=== PATIENT | female | born 1965 | race Caucasian/White ===

== ENCOUNTER 2018-08-22 04:27 | Emergency (ER) | payer OTHER ==
[2018-08-22] MEDS ORDERED: IOPAMIDOL (ISOVUE-300) 100 ML BTL ONE (05:09)
[2018-08-22 05:33] LABS: PLATELET COUNT 209 10^3/uL (150-400)
[2018-08-22] MEDS ORDERED: KETOROLAC 15 MG/1 ML SDV IVP ONE (06:50)
--- NOTE | 2018-08-22 07:19 | EDPHY ---
H & P Stated Complaint: Severe abd pain, HR of 26 at home, given 0.5 atropine x 2 enroute Time Seen by Provider: 08/22/18 04:45 HPI/ROS: Chief Complaint: Abdominal pain HPI: 52-year-old woman woke with generalized abdominal pain this morning. It was a 10/10. She called EMS. On EMS arrival they documented a heart rate of in the 20s. Patient states that the pain started to subside. Shortly at the pain started improving her heart rate started coming up. Paramedics did administer 0.5 mg of adenosine IV with resultant heart rate in the 80s. Patient is not complaining of generalized abdominal pain. Denies any lightheadedness or fainting. No chest pain or shortness of breath. She did eat some fish salad yesterday for dinner which she feels may have been bad. No diarrhea or constipation. Does not have a history of similar episodes in the past. Pain is improved, now about a 5/10. She does not have a history of low heart rate syncope or family history of sudden cardiac . ROS: 10 systems were reviewed and were negative except those elements noted in the HPI. PMH: Denies Social History: No smoking, no alcohol, no recreational drug use Family History: non-contributory Physical Exam: Gen: Awake, Alert, No Distress HEENT: Nose: no rhinorrhea Eyes: PERRLA, EOMI Mouth: Moist mucosa Neck: Supple, no JVD Chest: nontender, lungs clear to auscultation Heart: S1, S2 normal, no murmur Abd: Soft, mild generalized tenderness, primarily in the left side, no guarding Back: no CVA tenderness, no midline tenderness Ext: no edema, non-tender Skin: no rash Neuro: CN II-XII intact, Sensation grossly intact, Strength 5/5 in bilateral upper and lower extremities - Personal History Current Tetanus/Diphtheria Vaccine: Yes Current Tetanus Diphtheria and Acellular Pertussis (TDAP): Yes - Medical/Surgical History Hx Asthma: No Hx Chronic Respiratory Disease: No Hx Diabetes: No Hx Cardiac Disease: No Hx Renal Disease: No Hx Cirrhosis: No Hx Alcoholism: No Hx HIV/AIDS: No Hx Splenectomy or Spleen Trauma: No Other PMH: denies - Social History Smoking Status: Never smoked Constitutional: Initial Vital Signs Temperature (C) 36.4 C 08/22/18 04:33 Heart Rate 83 08/22/18 04:33 Respiratory Rate 18 08/22/18 04:33 Blood Pressure 126/96 H 08/22/18 04:33 O2 Sat (%) 100 08/22/18 04:33 O2 Delivery Mode Room Air Allergies/Adverse Reactions: No Known Allergies Allergy (Unverified 08/22/18 04:33) Home Medications: Medication Instructions Recorded NK [No Known Home Meds] 08/22/18 Medical Decision Making - Diagnostics EKG Interpretation: ECG time 4:42 a.m., sinus rhythm with a rate of 80, normal axis, normal intervals, no acute ST or T-wave changes. Impression: Normal ECG. Imaging Results: CT scan of the abdomen pelvis is negative per Dr. James. No source of her pain identified. ED Course/Re-evaluation: 52-year-old woman presenting with generalized abdominal pain. Is resolved with Toradol IV in fluids. Laboratory evaluations are completely normal. CT scan of abdomen pelvis is normal. I am not finding a cause of her pain. Paramedics did report an episode of bradycardia. This is not captured on a rhythm strip. He she has had no. Is of bradycardia in the emergency department. Symptoms may have been secondary to a vasovagal episode. She has been up and ambulating unassisted. Plan will be for discharge with follow-up with primary care physician. - Data Points Laboratory Results: Laboratory Results 08/22/18 05:16 08/22/18 05:16 08/22/18 08/22/18 08/22/18 06:20 05:16 05:16 WBC 8.43 10^3/uL 10^3/uL (3.80-9.50) RBC 4.23 10^6/uL 10^6/uL (4.18-5.33) Hgb 14.0 g/dL g/dL (12.6-16.3) Hct 41.2 % % (38.0-47.0) MCV 97.4 fL fL (81.5-99.8) MCH 33.1 pg pg (27.9-34.1) MCHC 34.0 g/dL g/dL (32.4-36.7) RDW 11.4 % L % (11.5-15.2) Plt Count 209 10^3/uL 10^3/uL (150-400) MPV 11.9 fL H fL (8.7-11.7) Neut % (Auto) 74.3 % H % (39.3-74.2) Lymph % (Auto) 17.1 % % (15.0-45.0) [place] % (Auto) 5.8 % % (4.5-13.0) Eos % (Auto) 2.4 % % (0.6-7.6) Baso % (Auto) 0.2 % L % (0.3-1.7) Nucleat RBC Rel Count 0.0 % % (0.0-0.2) Absolute Neuts (auto) 6.26 10^3/uL 10^3/uL (1.70-6.50) Absolute Lymphs (auto) 1.44 10^3/uL 10^3/uL (1.00-3.00) Absolute Monos (auto) 0.49 10^3/uL 10^3/uL (0.30-0.80) Absolute Eos (auto) 0.20 10^3/uL 10^3/uL (0.03-0.40) Absolute Basos (auto) 0.02 10^3/uL 10^3/uL (0.02-0.10) Absolute Nucleated RBC 0.00 10^3/uL 10^3/uL (0-0.01) Immature Gran % 0.2 % % (0.0-1.1) Immature Gran # 0.02 10^3/uL 10^3/uL (0.00-0.10) Sodium 145 mEq/L mEq/L (135-145) Potassium 4.1 mEq/L mEq/L (3.3-5.0) Chloride 108 mEq/L mEq/L (97-110) Carbon Dioxide 24 mEq/l mEq/l (22-31) Anion Gap 13 mEq/L mEq/L (6-14) BUN 14 mg/dL mg/dL (7-23) Creatinine 0.7 mg/dL mg/dL (0.6-1.0) Estimated GFR > 60 Glucose 85 mg/dL mg/dL (70-100) Calcium 9.7 mg/dL mg/dL (8.5-10.4) Total Bilirubin 1.1 mg/dL mg/dL (0.1-1.4) AST 21 IU/L IU/L (14-46) ALT 26 IU/L IU/L (9-52) Alkaline Phosphatase 112 IU/L IU/L (38-126) Total Protein 7.6 g/dL g/dL (6.3-8.2) Albumin 4.6 g/dL g/dL (3.5-5.0) Lipase 176 IU/L IU/L (23-300) Urine Color PALE YELLOW Urine Appearance CLEAR Urine pH 7.0 (5.0-7.5) Ur Specific [place] 1.015 (1.002-1.030) Urine Protein NEGATIVE (NEGATIVE) Urine Ketones NEGATIVE (NEGATIVE) Urine Blood NEGATIVE (NEGATIVE) Urine Nitrate NEGATIVE (NEGATIVE) Urine Bilirubin NEGATIVE (NEGATIVE) Urine Urobilinogen NEGATIVE EU EU (0.2-1.0) Ur Leukocyte Esterase TRACE H (NEGATIVE) Urine RBC NONE SEEN /hpf /hpf (0-3) Urine WBC 1-3 /hpf /hpf (0-3) Ur Epithelial Cells TRACE /lpf /lpf (NONE-1+) Urine Mucus TRACE /lpf /lpf (NONE-1+) Urine Glucose NEGATIVE (NEGATIVE) Medications Given: Discontinued Medications Ketorolac Tromethamine (Toradol) 15 mg IVP EDNOW ONE Stop: 08/22/18 06:51 Last Admin: 08/22/18 06:55 Dose: 15 mg Departure - Departure Disposition: Home, Routine, Self-Care Clinical Impression: Abdominal pain, Vasovagal episode Condition: Good Instructions: Acute Abdominal Pain (ED) Additional Instructions: Follow up with primary care physician in 2-3 days for further evaluation. Return to the emergency department for worsening abdominal pain, chest pain, lightheadedness, fainting, shortness of breath, or any other concerns. Referrals: LEIGHT[facility] JE[facility] [Other] - As per Instructions
[2018-08-22 07:38] VITALS: BP 119/78
--- NOTE | 2018-08-22 07:39 | CPEKG ---
Test Reason : OPEN Blood Pressure : / mmHG Vent. Rate : 080 BPM Atrial Rate : 080 BPM P-R Int : 129 ms QRS Dur : 081 ms QT Int : 401 ms P-R-T Axes : 078 068 056 degrees QTc Int : 463 ms Sinus rhythm Confirmed by Zi Falcon [id number] on 08/22/2018 7:38:43 AM Referred By: Confirmed By:Zi Falcon
== END 2018-08-22 07:38 | disposition home or self-care (01) ==
LOC: EDUNIT#
DX: R10.9 Unspecified abdominal pain (principal); R55 Syncope and collapse
CPT/HCPCS: 96374; J1885; Q9967